=== PATIENT | female | born 1985 | race Two or more races ===

== ENCOUNTER 2016-12-01 00:25 | Emergency (ER) | payer OTHER ==
[~2016-12-01] VITALS: Ht 160 cm; Wt 74.1 kg
[~2016-12-01 00:25] MED LIST: AFRIN,GENASAL D15 ML BOTH NARES; ANAPROX DS550 M1 PO; AUGMENTIN600 MG/5 M PO; BENTYL20 MG PO; CLONIDINE HCL0.1 MG PO; CYANOCOBAL1000 MCG/2 IM; Colace PO; ENDOCET 5-3251 EACH PO; ERGOCALCIF50000 UNIT PO; FEOSOL325 MG PO; FERREX 150150 MG PO; Feosol PO; HAIR SKIN NAIL1 EACH PO; HYDROCODON-ACE1 EA11 PO; IBUPROFEN100 MG/5 M PO; IMITREX25 MG PO; IRON PO; IRON325 M1 PO; LIDOCAINE20 MG/1 M5 PO; LORTAB 10 MG-3473 ML PO; MEDROXYPROGESTER5 MG PO; MIRENA52 MG IY; MOTRIN600 MG PO; MULTIPLE VITAM1 EACH PO; Motrin PO; NOHOMEMEDS; PERCOCET 5/31 TABLET PO; PROMETHAZINE HC25 M1 PO; REGLAN10 MG PO; RITALIN20 MG PO; TYLENOL WITH C1 EACH PO; VITAMIN D31000 UNIT PO; ZOFRAN4 MG PO; [UNRECOGNIZED DRUG - REMARK]
[2016-12-01 02:43] LABS: HEMATOCRIT 36.9 % (36.0-46.0); MCH 27.2 PG (29.0-34.0); MCHC 32.8 G/DL (30.0-36.0); MCV 82.9 FL (83-99); MEAN PLAT.VOLUME 10.1 uM^3 (9.5-12.4); PLATELET COUNT 242 K/uL (156-360); RBC DIS.WIDTH-CV 14.6 % (11.8-14.6); RBC DIS.WIDTH-SD 44.3 % (39-53); RED BLOOD COUNT 4.45 M/uL (3.80-5.20); WHITE BLOOD COUNT 8.7 K/uL (4.1-10.2)
[2016-12-01 02:53] LABS: CHLORIDE 107 mEq/L (99-109); INTER. NORMALIZED RATIO 1.1; PROTHROMBIN TIME 10.8 (9.2-11.2); PTT 26.1 (25-32)
[2016-12-01 02:54] LABS: SODIUM 139 mEq/L (136-147)
[2016-12-01 02:55] LABS: GLUCOSE 101 mg/dL (70-99)
[2016-12-01 02:57] LABS: ANION GAP 8 MEQ/L (2-14)
[2016-12-01 02:59] LABS: GFR ESTIMATE (CALCULATED) > 59 mL/min/
[2016-12-01 03:00] LABS: UREA NITROGEN (BUN) 14 mg/dL (9-23)
[2016-12-01] MEDS ORDERED: KEFLEX500 MG PO (03:58)
[2016-12-01 04:24] VITALS: BP 134/84
== END 2016-12-01 04:25 | disposition home or self-care (01) ==
LOC: EME 00:25
PROVIDERS: Emergency Medicine
DX: G89.18 Other acute postprocedural pain (principal); M79.605 Pain in left leg; L03.116 Cellulitis of left lower limb; Z88.5 Allergy status to narcotic agent; Z91.040 Latex allergy status
CPT/HCPCS: 80048; 85027; 85610; 85730; 99281; 99284

== ENCOUNTER 2016-12-21 21:25 | Emergency (ER) | payer OTHER ==
[~2016-12-21] VITALS: Ht 160 cm; Wt 73.7 kg
[~2016-12-21 21:25] MED LIST changes: +KEFLEX500 MG PO
[2016-12-21] MEDS ORDERED: NAPROXEN500 MG PO (22:17)
[2016-12-21 22:32] VITALS: BP 119/90
== END 2016-12-21 22:41 | disposition home or self-care (01) ==
LOC: EME 21:25
PROC: 3E0234Z Introduction of Serum, Toxoid and Vaccine into Muscle, Percutaneous Approach (ICD-10-PCS; principal; 2016-12-21)
DX: S60.221A Contusion of right hand, initial encounter (principal); W23.0XXA Caught, crushed, jammed, or pinched between moving objects, initial encounter
CPT/HCPCS: 73130; 99281; 99283

== ENCOUNTER 2017-06-30 18:14 | Emergency (ER) | payer OTHER ==
[~2017-06-30] VITALS: Ht 160 cm; Wt 97.3 kg
[~2017-06-30 18:14] MED LIST changes: +NAPROXEN500 MG PO
[2017-06-30 19:15] LABS: HEMATOCRIT 37.8 % (36.0-46.0); MCH 29.2 PG (29.0-34.0); MCHC 34.4 G/DL (30.0-36.0); MCV 84.9 FL (83-99); MEAN PLAT.VOLUME 10.2 uM^3 (9.5-12.4); PLATELET COUNT 242 K/uL (156-360); RBC DIS.WIDTH-CV 12.6 % (11.8-14.6); RBC DIS.WIDTH-SD 38.8 % (39-53); RED BLOOD COUNT 4.45 M/uL (3.80-5.20); WHITE BLOOD COUNT 9.8 K/uL (4.1-10.2)
[2017-06-30 19:23] LABS: CHLORIDE 108 mEq/L (99-109); POTASSIUM 4.2 mEq/L (3.7-5.4); SODIUM 139 mEq/L (136-147)
[2017-06-30 19:25] LABS: GLUCOSE 100 mg/dL (70-99)
[2017-06-30 19:27] LABS: ANION GAP 7 MEQ/L (2-14)
[2017-06-30 19:29] LABS: GFR ESTIMATE (CALCULATED) > 59 mL/min/
[2017-06-30 19:30] LABS: UREA NITROGEN (BUN) 12 mg/dL (9-23)
[2017-06-30] MEDS ORDERED: FIORINAL 50-321 EACH PO (21:24)
[2017-06-30 21:37] VITALS: BP 111/61
== END 2017-06-30 21:39 | disposition home or self-care (01) ==
LOC: EME 18:14
PROVIDERS: Emergency Medicine
DX: G43.909 Migraine, unspecified, not intractable, without status migrainosus (principal); Z91.040 Latex allergy status; Z88.5 Allergy status to narcotic agent
CPT/HCPCS: 70450; 80048; 85027; 99281; 99284; J1200; J1885; J2405; J2765